=== PATIENT | male | born 1940 | race Caucasian/White ===

== ENCOUNTER 2018-11-03 11:57 | Emergency (ER) | payer MEDICARE, OTHER ==
--- NOTE | 2018-11-03 12:25 | ER Document Report ---
ED Medical Screen (RME) - General Chief Complaint: Abdominal Pain Stated Complaint: STOMACH PAIN Time Seen by Provider: 11/03/18 12:18 Mode of Arrival: Ambulatory Information source: Patient Notes: This 78-year-old male with a history of prostate cancer presents the emergency department with complaints of dark urine for the past month and also complains of pain to his right inguinal area. Denies testicular pain denies penile discharge. Denies other symptoms such as fever vomiting. Patient also reports he has had left-sided abdominal pain for over a month. Reports that is been evaluated and they did not find anything. Understanding not that was the longest is 1 just been going there which was delayed going I have greeted and performed a rapid initial assessment of this patient. A comprehensive ED assessment and evaluation of the patient, analysis of test results and completion of the medical decision making process will be conducted by additional ED providers. Dictation of this chart was performed using voice recognition software; therefore, there may be some unintended grammatical errors. TRAVEL OUTSIDE OF THE [place] IN LAST 30 DAYS: No - Related Data Allergies/Adverse Reactions: Penicillins Allergy (Verified 11/03/18 11:58) Past Medical History - Social History Frequency of alcohol use: Occasional Drug Abuse: None Renal/ Medical History: Denies: Hx Peritoneal Dialysis Physical Exam - Vital signs Vitals: Temp Pulse Resp BP Pulse Ox 97.6 F 58 L 18 149/72 H 95 11/03/18 12:03 11/03/18 12:03 11/03/18 12:03 11/03/18 12:03 11/03/18 12:03 Course - Vital Signs Vital signs: Temp Pulse Resp BP Pulse Ox 97.6 F 58 L 18 149/72 H 95 11/03/18 12:03 11/03/18 12:03 11/03/18 12:03 11/03/18 12:03 11/03/18 12:03
[2018-11-03 12:48] LABS: APPEARANCE,URINE CLEAR; BILIRUBIN,URINE NEGATIVE (NEGATIVE); COLOR,URINE STRAW; GLUCOSE, URINE NEGATIVE (NEGATIVE); KETONES,URINE NEGATIVE (NEGATIVE); LEUKOCYTE ESTERASE,URINE NEGATIVE (NEGATIVE); NITRITE,URINE NEGATIVE (NEGATIVE); PROTEIN,URINE NEGATIVE (NEGATIVE); URINE SPECIFIC GRAVITY 1.006; UROBILINOGEN,URINE NEGATIVE mg/dL (<2.0)
[2018-11-03 12:49] LABS: ABSOLUTE BASOPHILS # (AUTO) 0.1 10^3/uL (0.0-0.2); ABSOLUTE EOSINOPHILS # (AUTO) 0.3 10^3/uL (0.0-0.6); ABSOLUTE LYMPHOCYTES (AUTO) 0.9 10^3/uL (0.5-4.7); ABSOLUTE MONOCYTES (AUTO) 0.5 10^3/uL (0.1-1.4); ABSOLUTE NEUT (AUTO) 3.3 10^3/uL (1.7-8.2); BASOPHILS % (AUTO) 1.3 % (0-2); EOSINOPHILS % (AUTO) 4.9 % (0-6); HEMATOCRIT 42.6 % (37.9-51.0); HEMOGLOBIN 14.7 g/dL (13.5-17.0); LYMPHOCYTES % (AUTO) 18.1 % (13-45); MEAN CORPUSCULAR HEMOGLOBIN 30.4 pg (27.0-33.4); MEAN CORPUSCULAR HGB CONC 34.6 g/dL (32.0-36.0); MEAN CORPUSCULAR VOLUME 88 fl (80-97); MONOCYTES % (AUTO) 10.1 % (3-13); PLATELET COUNT 244 10^3/uL (150-450); RED BLOOD COUNT 4.84 10^6/uL (4.35-5.55); RED CELL DISTRIBUTION WIDTH 13.7 % (11.5-14.0); SEGMENTED NEUTROPHILS % (AUTO) 65.6 % (42-78); TOTAL CELLS COUNTED % (AUTO) 100 %; WHITE BLOOD COUNT 5.1 10^3/uL (4.0-10.5)
[2018-11-03 13:03] LABS: ALBUMIN 3.9 g/dL (3.5-5.0); ALKALINE PHOSPHATASE 67 U/L (38-126); ANION GAP 7 (5-19); ASPARTATE AMINO TRANSFERASE 21 U/L (17-59); BILIRUBIN,DIRECT 0.1 mg/dL (0.0-0.4); BILIRUBIN,TOTAL 0.7 mg/dL (0.2-1.3); BLOOD UREA NITROGEN 17 mg/dL (7-20); CALCIUM 9.4 mg/dL (8.4-10.2); CARBON DIOXIDE 30 mmol/L (22-30); CHLORIDE 104 mmol/L (98-107); GLUCOSE 99 mg/dL (75-110); POTASSIUM 4.4 mmol/L (3.6-5.0); TOTAL PROTEIN 6.3 g/dL (6.3-8.2)
--- NOTE | 2018-11-03 15:26 | RADIOLOGY REPORT (SQ) ---
EXAM DESCRIPTION: U/S SCROTUM W/DOPPLER COMPLETED DATE/TIME: 11/03/2018 3:17 pm REASON FOR STUDY: right inguinal pain COMPARISON: None. TECHNIQUE: Static and realtime salter scale imaging of the scrotum and testes. Selected color Doppler and spectral images recorded to document blood flow. LIMITATIONS: None. FINDINGS: RIGHT: TESTICLE: Normal size. Normal echotexture. Normal blood flow. No mass. EPIDIDYMIS: Normal. HYDROCELE OR VARICOCELE: Small right-sided hydrocele. HERNIA OR EXTRA-TESTICULAR MASS: No. OTHER: No other significant finding. LEFT: TESTICLE: Normal size. Normal echotexture. Normal blood flow. No mass. EPIDIDYMIS: Normal. HYDROCELE OR VARICOCELE: Small complex hydrocele and small varicocele. HERNIA OR EXTRA-TESTICULAR MASS: No. OTHER: No other significant finding. IMPRESSION: Small complex left hydrocele and small left varicocele. No evidence of torsion. No foc al mass. TECHNICAL DOCUMENTATION: JOB ID: [id number] [employer]- All Rights Reserved Reading location - IP/workstation name: [email or web address]
--- NOTE | 2018-11-03 15:50 | ER Document Report ---
ED GI/ - General Chief Complaint: Abdominal Pain Stated Complaint: STOMACH PAIN Time Seen by Provider: 11/03/18 12:18 Mode of Arrival: Ambulatory Notes: Very pleasant 78-year-old male with history of prostate cancer in remission and diverticulitis status post partial colonic resection presents to the emergency department with chief complaint of right inguinal pain x2 days and left-sided abdominal pain x1 month. Patient denies any actual testicular pain or abnormal urethral discharge, denies fevers or chills, denies any acute shortness of breath or chest pain, denies any nausea/vomiting/diarrhea/constipation, states that he has a dull left lower quadrant pain that has been present for 2 to 3 months. No other complaints TRAVEL OUTSIDE OF THE [place] IN LAST 30 DAYS: No - Related Data Allergies/Adverse Reactions: Penicillins Allergy (Verified 11/03/18 11:58) Past Medical History - General Information source: Patient - Social History Smoking Status: Never Smoker Frequency of alcohol use: Occasional Drug Abuse: None Family History: None Patient has suicidal ideation: No Patient has homicidal ideation: No Renal/ Medical History: Denies: Hx Peritoneal Dialysis Review of Systems - Review of Systems Constitutional: See HPI EENT: No symptoms reported Cardiovascular: See HPI Respiratory: See HPI Gastrointestinal: See HPI Genitourinary: See HPI Male Genitourinary: See HPI Musculoskeletal: No symptoms reported Skin: No symptoms reported Hematologic/Lymphatic: No symptoms reported Neurological/Psychological: No symptoms reported Physical Exam - Vital signs Vitals: Temp Pulse Resp BP Pulse Ox 97.6 F 58 L 18 149/72 H 95 11/03/18 12:03 11/03/18 12:03 11/03/18 12:03 11/03/18 12:03 11/03/18 12:03 - Notes Notes: PHYSICAL EXAMINATION: Reviewed vital signs and charting by RN GENERAL: Alert, interacts well. No acute distress. HEAD: Normocephalic, atraumatic. EYES: Pupils equal and round. Extraocular movements intact. ENT: Oral mucosa moist, tongue midline. NECK: Full range of motion. Trachea midline. LUNGS: Clear to auscultation bilaterally, no wheezes, rales, or rhonchi. No respiratory distress. HEART: Regular rate and rhythm. No murmur ABDOMEN: soft, very mild tenderness to palpation left lower quadrant. No distention. Bowel sounds present : Normal lying testes, no erythema or discoloration EXTREMITIES: Moves all 4 extremities spontaneously. No edema, No cyanosis. PSYCH: Normal affect, normal mood. SKIN: Warm, dry, normal turgor. No rashes or lesions noted. Course - Re-evaluation Re-evalutation: 11/03/18 15:59 Overall well-appearing patient presents with concern for inguinal pain. Lab work all within normal limits. Scrotal ultrasound showed a left-sided varicocele and left-sided hydrocele. I explained to patient this could be causing his discomfort. His abdominal pain is subacute and he has a benign exam with normal labs so even if this does represent a diverticulosis there is nothing to do here today. Patient is here vacationing and has good urologic follow-up. He is stable for discharge - Vital Signs Vital signs: Temp Pulse Resp BP Pulse Ox 97.6 F 58 L 18 149/72 H 95 11/03/18 12:03 11/03/18 12:03 11/03/18 12:03 11/03/18 12:03 11/03/18 12:03 - Laboratory Result Diagrams: 11/03/18 12:25 11/03/18 12:25 Discharge - Discharge Clinical Impression: Left varicocele Hydrocele Qualifiers: Hydrocele type: unspecified Qualified Code(s): N43.3 - Hydrocele, unspecified Condition: Good Disposition: HOME, SELF-CARE Additional Instructions: You were seen in the emergency department this afternoon for abdominal pain/groin pain. Your work-up was very reassuring: All lab work was within normal limits and the ultrasound of your scrotum show that you have a small left-sided hydrocele and a small left-sided varicocele. Because you have excellent follow-up with Dr. Johnston, I encourage you to make an appointment with him. There was no evidence of testicular torsion or any emergent condition here today. Your abdominal exam was very benign which was also very reassuring in the setting of your abdominal pain and this could be related to muscular strain from exercising or it could be diverticulosis. Nonetheless, you had normal vital signs and a normal work-up so there is nothing to do today. Please return to the emergency department if you develop severe intractable abdominal pain, acute weakness, bloody diarrhea, blood in your urine, acute urinary retention, or any other concerning symptoms.
[2018-11-03 16:38] VITALS: BP 150/80
== END 2018-11-03 16:38 | disposition home or self-care (01) ==
LOC: ER 11:57
DX: I86.1 Scrotal varices (principal); N43.3 Hydrocele, unspecified; R10.9 Unspecified abdominal pain; R10.31 Right lower quadrant pain
CPT/HCPCS: 36415; 76870; 80053; 81001; 85025; 87086; 87088; 93976; 99284